=== PATIENT | female | born 1970 | race Caucasian/White ===

== ENCOUNTER → 2021-01-01 | Day surgery (SDC) | payer OTHER ==
[~2021-01-01] VITALS: Ht 157.5 cm; Wt 86.2 kg
[~2021-01-01] MED LIST: ADVIL200 M1 PO; PERCOCET 5-3251 EACH PO
[2021-01-01 10:34] LABS: HGB 13.3 g/dl (12.5-16.0); MCH 27.9 pg (25.0-31.0); MCHC 32.4 g/dL (32.0-36.0); MCV 86.1 fL (78.0-100.0); MPV 9.8 fL (6.0-9.5); RBC 4.76 M/uL (4.20-5.40); RDW 13.5 % (11.5-14.0); WBC 5.8 K/uL (4.0-10.5)
[2021-01-01 10:55] LABS: ALBUMIN 3.5 g/dL (3.4-5.0); BILIRUBIN - TOTAL 0.3 mg/dL (0.2-1.0); CREATININE 0.77 mg/dL (0.51-0.95); GLOBULIN (CALCULATION) 3.8 g/dL; POTASSIUM 4.3 mmol/L (3.5-5.1); TOTAL PROTEIN 7.3 g/dL (6.4-8.2)
== END | disposition home or self-care (01) ==
LOC: FAS 10:00
PROVIDERS: Orthopaedic Surgery
DX: G56.02 Carpal tunnel syndrome, left upper limb (principal); F32.9 Major depressive disorder, single episode, unspecified; Z87.891 Personal history of nicotine dependence; Z91.040 Latex allergy status; Z79.1 Long term (current) use of non-steroidal anti-inflammatories (NSAID)
CPT/HCPCS: 36415; 80053; 93005; J1100; J1170; J1885; J2250; J2405; J2704; J3010; J7120